=== PATIENT | male | born 1985 | race Caucasian/White ===

== ENCOUNTER 2017-03-09 00:06 | Emergency (ER) | payer SELFPAY ==
[~2017-03-09] VITALS: Ht 157.5 cm; Wt 56.7 kg
[2017-03-09 00:09] VITALS: BP 138/70
--- NOTE | 2017-03-09 00:16 | NUR ---
pt not in room. pt eloped
== END 2017-03-09 00:32 | disposition home or self-care (01) ==
LOC: ER 00:09
DX: S19.9XXA Unspecified injury of neck, initial encounter (principal); Y04.0XXA Assault by unarmed brawl or fight, initial encounter; Y93.89 Activity, other specified; Y92.89 Other specified places as the place of occurrence of the external cause; Y99.8 Other external cause status
CPT/HCPCS: 99284; A4606; Z7610

== ENCOUNTER 2018-03-19 22:40 | Emergency (ER) | payer OTHER ==
[~2018-03-19] VITALS: Ht 160 cm; Wt 54.9 kg
--- NOTE | 2018-03-19 22:57 | NUR ---
PT BROUGHT IN FROM [facility] COMPLAINING OF SOB, PT HAS NO MEDICAL HISTORY, PT LUNG SOUNDS CLEAR, 02SAT 100%, NO RESPIRATORY DISTRESS.
[2018-03-19] MEDS ORDERED: LORAZEPAM 1 MG TABLET PO ONE (23:30)
[2018-03-19] MEDS ORDERED: LORAZEPAM 1 MG TABLET ONE (23:30)
[2018-03-20 00:18] VITALS: BP 119/65
== END 2018-03-20 00:19 | disposition home or self-care (01) ==
LOC: ER 22:41
DX: F41.1 Generalized anxiety disorder (principal); R07.89 Other chest pain; F12.90 Cannabis use, unspecified, uncomplicated; R00.1 Bradycardia, unspecified; Z02.89 Encounter for other administrative examinations
CPT/HCPCS: 71045-TC

== ENCOUNTER 2021-10-04 14:28 | Emergency (ER) | payer BC, OTHER ==
[~2021-10-04] VITALS: Ht 160 cm; Wt 63.5 kg
[2021-10-04 14:39] VITALS: BP 112/82
[2021-10-04] MEDS ORDERED: LIDOCAINE 2% JEL 5 ML TUBE TP ONE (15:00)
[2021-10-04] MEDS ORDERED: KETOROLAC TROMETHAMINE INJ 30 MG/ML VIAL IM ONE (15:00)
[2021-10-04] MEDS ORDERED: POLY17PO4 PO (15:04)
[2021-10-04] MEDS ORDERED: LIDO10JE TP (15:04)
[2021-10-04] MEDS ORDERED: DOCU100C36 PO (15:04)
[2021-10-04] MEDS ORDERED: KETOROLAC TROMETHAMINE INJ 30 MG/ML VIAL ONE (15:12)
[2021-10-04] MEDS ORDERED: LIDOCAINE 2% JEL 5 ML TUBE ONE (15:12)
--- NOTE | 2021-10-04 15:25 | NUR ---
NO obvious distress NO acute changes Patient discharged to home in stable condition. Written and verbal after care instructions given. Patient verbalizes understanding of instruction.
== END 2021-10-04 15:26 | disposition home or self-care (01) ==
LOC: ER 14:32
DX: K60.2 Anal fissure, unspecified (principal)
CPT/HCPCS: 99283; 96372; J1885

== ENCOUNTER 2023-04-23 00:07 | Emergency (ER) | payer OTHER ==
[~2023-04-23] VITALS: Ht 157.5 cm; Wt 56.7 kg
[~2023-04-23 00:07] MED LIST: DOCU100C36 PO; LIDO10JE TP; POLY17PO4 PO
[2023-04-23 01:24] VITALS: BP 144/78; TEMP 98; O2SAT 99
[2023-04-23] MEDS ORDERED: AMOX-430 PO (01:34)
[2023-04-23] MEDS: TDAP [DIPH/PERTUSSIS/TET] 0.5 ML VIAL IM ONE (01:49)
== END 2023-04-23 01:50 | disposition home or self-care (01) ==
LOC: ER 00:11
DX: S01.03XA Puncture wound without foreign body of scalp, initial encounter (principal); Z79.899 Other long term (current) drug therapy; W54.0XXA Bitten by dog, initial encounter; Y93.89 Activity, other specified; Y92.89 Other specified places as the place of occurrence of the external cause; Y99.8 Other external cause status

== ENCOUNTER 2023-10-03 20:49 | Emergency (ER) | payer OTHER ==
[~2023-10-03] VITALS: Ht 170.2 cm; Wt 72.6 kg
[~2023-10-03 20:49] MED LIST changes: +AMOX-430 PO
[2023-10-03] MEDS ORDERED: IBUPROFEN 400 MG TABLET ONE (21:31)
[2023-10-03] MEDS: IBUPROFEN 400 MG TABLET PO ONE (21:32)
[2023-10-03 22:33] VITALS: BP 120/70; TEMP 98.5; O2SAT 99
[2023-10-04] MEDS ORDERED: CYCL5TAB PO (19:18)
== END 2023-10-03 22:33 | disposition home or self-care (01) ==
LOC: ER 20:57
DX: S43.491A Other sprain of right shoulder joint, initial encounter (principal); S70.02XA Contusion of left hip, initial encounter; S70.01XA Contusion of right hip, initial encounter; M54.2 Cervicalgia; Z79.899 Other long term (current) drug therapy; V89.2XXA Person injured in unspecified motor-vehicle accident, traffic, initial encounter; Y93.89 Activity, other specified; Y92.89 Other specified places as the place of occurrence of the external cause; Y99.8 Other external cause status
CPT/HCPCS: 72170-TC; 73030-TC

== ENCOUNTER 2023-10-04 17:20 | Emergency (ER) | payer OTHER ==
[~2023-10-04] VITALS: Ht 160 cm; Wt 56.7 kg
[2023-10-04] MEDS ORDERED: CYCLOBENZAPRINE 10 MG TABLET ONE (19:18)
[2023-10-04] MEDS ORDERED: CYCL5TAB PO (19:18)
[2023-10-04] MEDS: CYCLOBENZAPRINE 10 MG TABLET PO ONE (19:19)
[2023-10-04] MEDS: IBUPROFEN 600 MG TABLET PO ONE (19:19)
[2023-10-04] MEDS ORDERED: IBUPROFEN 600 MG TABLET ONE (19:19)
[2023-10-04 20:10] VITALS: BP 105/68; TEMP 98.1; O2SAT 98
== END 2023-10-04 20:11 | disposition home or self-care (01) ==
LOC: ER 17:28
DX: R07.89 Other chest pain (principal); Z79.899 Other long term (current) drug therapy
CPT/HCPCS: 71045-TC